=== PATIENT | male | born 1960 | race Caucasian/White ===

== ENCOUNTER 2018-02-21 22:19 | Emergency (ER) | payer OTHER ==
[~2018-02-21] VITALS: Ht 177.8 cm; Wt 145.2 kg
--- NOTE | ~2018-02-21 | EKG ---
[address] [address] [place] [address] ELECTROCARDIOGRAM REPORT Name: VIJAY FELIZ Room #: [facility] [place]#: [id number] Admission: 02/21/18 Attend Phys: Discharge: 02/22/18 Date of : 56 Report #: [id number] THIS REPORT FOR: //name// [facility] ED Test Date: 2018-02-21 Test Time: 22:24:05 Pat Name: VIJAY FELIZ Department: Room: Gender: Printing Press Machinist: QUINTON : 1960 Requested By: Order Number: [id number] MD: George Patterson Measurements Intervals Reeves Rate: 70 P: 28 AR: 187 QRS: -29 QRSD: 137 T: 32 QT: 426 QTc: 460 Interpretive Statements Sinus rhythm IVCD, consider atypical LBBB No previous ECG available for comparison Electronically Signed On 02-22-2018 8:13:30 CDT by George Patterson [email or web address] <ELECTRONICALLY SIGNED> By: George Patterson MD, [facility] 02/22/18 0813 2224 2224 George Patterson MD, FAC /EPI
== END 2018-02-22 01:48 ==
LOC: ER 22:19
DX: I46.9 Cardiac arrest, cause unspecified (principal)